=== PATIENT | female | born 1995 | race African-American/Black ===

== ENCOUNTER → 2020-05-28 13:42 | Outpatient (CLI) | payer BC, SELFPAY ==
--- NOTE | ~2020-05-28 | XR_ITS ---
EXAMINATION: XR hand RT 2V EXAM DATE: 05/28/2020 15:29 INDICATION: Multiple joint pain . TECHNIQUE: Frontal and lateral projections of the right hand. There is no prior study for compariso n. FINDINGS: The joint spaces are uniform. There are no acute right hand fractures or dislocations iden tified. There is no subcutaneous gas. The soft tissue is unremarkable. There are no radiopaque fo reign bodies. IMPRESSION: 1. Unremarkable XR hand RT 2V exam. Reviewed, dictated and finalized at location B. EMS MANAGEMENT CONSULTANT
--- NOTE | ~2020-05-28 | XR_ITS ---
EXAMINATION: XR ankle RT 2V EXAM DATE: 05/28/2020 15:29 INDICATION: Multiple joint pain . TECHNIQUE: Frontal and lateral projections of the right ankle. There is no prior study for comparis on. FINDINGS: There are no acute right ankle fractures or dislocations identified. There is no subcutane ous gas. The soft tissue is unremarkable. There are no radiopaque foreign bodies. IMPRESSION: 1. Unremarkable XR ankle RT 2V exam. Reviewed, dictated and finalized at location B. WILL AMBASSADOR
--- NOTE | ~2020-05-28 | XR_ITS ---
EXAMINATION: XR hand LT 2V EXAM DATE: 05/28/2020 15:29 INDICATION: Multiple joint pain. TECHNIQUE: Frontal and lateral projections of the left hand. Correlation is made to contralateral lawrence nd same date. FINDINGS: There are no acute left hand fractures or dislocations identified. There is no subcutaneou s gas. The soft tissue is unremarkable. There are no radiopaque foreign bodies. There are no bony erosions identified. Joint spaces are uniform. IMPRESSION: 1. Unremarkable XR hand LT 2V exam. Reviewed, dictated and finalized at location B. ULTANT
--- NOTE | ~2020-05-28 | XR_ITS ---
EXAMINATION: XR elbow LT 2V EXAM DATE: 05/28/2020 15:29 INDICATION: Multiple joint pain . TECHNIQUE: Frontal and lateral projections of the left wrist. There is no prior study for compariso n. FINDINGS: There are no acute left elbow fractures or dislocations identified. There is no subcutaneo us gas. The soft tissue is unremarkable. There are no radiopaque foreign bodies. IMPRESSION: 1. Unremarkable XR elbow LT 2V exam. Reviewed, dictated and finalized at location B. EHOUSE OPERATOR
--- NOTE | ~2020-05-28 | XR_ITS ---
EXAMINATION: XR shoulder RT min 2V EXAM DATE: 05/28/2020 15:29 INDICATION: Multiple joint pain . TECHNIQUE: Right shoulder frontal with internal rotation, frontal with external rotation, axillary p rojections. There is no prior study for comparison. FINDINGS: Unremarkable right glenohumeral and acromioclavicular joints. There are no acute fractures or dislocations identified. There is no subcutaneous gas. The soft tissue is unremarkable. There are no radiopaque foreign bodies. IMPRESSION: 1. Unremarkable XR shoulder RT min 2V exam. Reviewed, dictated and finalized at location B. ORT OPERATIONS OFFICER
--- NOTE | ~2020-05-28 | XR_ITS ---
EXAMINATION: XR ankle LT 2V EXAM DATE: 05/28/2020 15:29 INDICATION: Multiple joint pain . TECHNIQUE: Frontal and lateral projections of the left ankle. There is no prior study for compariso n. FINDINGS: There is an old avulsion injury of the medial malleolus. The ankle mortise appears intact. There are no acute left ankle fractures or dislocations identified. There is no subcutaneous gas. The soft tissue is unremarkable. There are no radiopaque foreign bodies. IMPRESSION: 1. XR ankle LT 2V exam without acute osseous findings. 2. Old medial malleolar avulsion injury. Reviewed, dictated and finalized at location B. ETING RESEARCHER
--- NOTE | ~2020-05-28 | XR_ITS ---
EXAMINATION: XR hip BI wo pelvis EXAM DATE: 05/28/2020 15:29 INDICATION: Multiple joint pain . TECHNIQUE: Each hip imaged independently (separate right and also left hip) 'frog leg' and frontal p rojections for interpretation. There is no prior study for comparison. FINDINGS: No radiographic evidence of hip avascular necrosis. Unremarkable hip joints. There are no a cute fractures or dislocations identified. There is no subcutaneous gas. The soft tissue is unremar kable. There are no radiopaque foreign bodies. IMPRESSION: 1. Unremarkable XR hip BI wo pelvis exam. Reviewed, dictated and finalized at location B. EE SHOP AIDE
--- NOTE | ~2020-05-28 | XR_ITS ---
EXAMINATION: XR elbow RT 2V EXAM DATE: 05/28/2020 15:29 INDICATION: Multiple joint pain. TECHNIQUE: Frontal and lateral projections of the right elbow. There is no prior study for comparis on. FINDINGS: There are no acute right elbow fractures or dislocations identified. There is no subcutane ous gas. The soft tissue is unremarkable. There are no radiopaque foreign bodies. IMPRESSION: 1. Unremarkable XR elbow RT 2V exam. Reviewed, dictated and finalized at location B. AULIC CHAIR ASSEMBLER
--- NOTE | ~2020-05-28 | XR_ITS ---
EXAMINATION: XR knee LT 2V EXAM DATE: 05/28/2020 15:29 INDICATION: Multiple joint pain . TECHNIQUE: Frontal and lateral projections of the left knee. There is no prior study for comparison . FINDINGS: There are no acute left knee fractures or dislocations identified. There is no subcutaneou s gas. The soft tissue is unremarkable. There are no radiopaque foreign bodies. IMPRESSION: 1. Unremarkable XR knee LT 2V exam. Reviewed, dictated and finalized at location B. OW MACHINE OPERATOR
--- NOTE | ~2020-05-28 | XR_ITS ---
EXAMINATION: XR foot LT 2V EXAM DATE: 05/28/2020 15:29 INDICATION: Multiple joint pain. TECHNIQUE: Frontal and lateral projections of the left foot. There is no prior study for comparison . FINDINGS: There is mild left hallux valgus. There are no bony erosions identified. No periosteal brian ction or band of sclerosis to suggest subacute stress fracture. There are no acute fractures or dislo cations identified. There is no subcutaneous gas. The soft tissue is unremarkable. There are no r adiopaque foreign bodies. IMPRESSION: Mild left hallux valgus. Reviewed, dictated and finalized at location B. ONATION TESTER IMPRESSION: Mild left hallux valgus.
--- NOTE | ~2020-05-28 | XR_ITS ---
EXAMINATION: XR knee RT 2V EXAM DATE: 05/28/2020 15:29 INDICATION: Multiple joint pain . TECHNIQUE: Frontal and lateral projections of the right knee. There is no prior study for compariso n. FINDINGS: There is minimal right medial tibiofemoral compartment primary osteoarthritis. No joint ef fusion. There are no acute fractures or dislocations identified. There is no subcutaneous gas. The soft tissue is unremarkable. There are no radiopaque foreign bodies. IMPRESSION: Minimal right knee osteoarthritis. Reviewed, dictated and finalized at location B. LE INSTALLER
--- NOTE | ~2020-05-28 | XR_ITS ---
EXAMINATION: XR shoulder LT min 2V EXAM DATE: 05/28/2020 15:29 INDICATION: Multiple joint pain . TECHNIQUE: Left shoulder frontal with internal rotation, frontal with external rotation, axillary pr ojections. There is no prior study for comparison. FINDINGS: Unremarkable left glenohumeral and acromioclavicular joints. There are no acute fractures or dislocations identified. There is no subcutaneous gas. The soft tissue is unremarkable. There are no radiopaque foreign bodies. IMPRESSION: 1. Unremarkable XR shoulder LT min 2V exam. Reviewed, dictated and finalized at location B. NG MAKER
--- NOTE | ~2020-05-28 | XR_ITS ---
EXAMINATION: XR wrist RT 2V EXAM DATE: 05/28/2020 15:29 INDICATION: Multiple joint pain . TECHNIQUE: Right wrist frontal and lateral projections obtained and reviewed. Correlation is made to contralateral wrist same date. FINDINGS: Right wrist scapholunate joint space is maintained. There are no acute fractures or disloca tions identified. There is no subcutaneous gas. The soft tissue is unremarkable. There are no rad iopaque foreign bodies. IMPRESSION: 1. Unremarkable XR wrist RT 2V exam. Reviewed, dictated and finalized at location B. N END MAN
--- NOTE | ~2020-05-28 | XR_ITS ---
EXAMINATION: XR foot RT 2V EXAM DATE: 05/28/2020 15:29 INDICATION: Multiple joint pain . TECHNIQUE: Frontal and lateral projections of the right foot. There is no prior study for compariso n. FINDINGS: There is mild right-sided hallux valgus. No periosteal reaction or band of sclerosis to akbar ggest subacute stress fracture. There are no bony erosions identified. There are no acute fractures o r dislocations identified. There is no subcutaneous gas. The soft tissue is unremarkable. There a re no radiopaque foreign bodies. IMPRESSION: Mild right hallux valgus. Reviewed, dictated and finalized at location B. DIRECTOR IMPRESSION: Mild right hallux valgus.
--- NOTE | ~2020-05-28 | XR_ITS ---
EXAMINATION: XR wrist LT 2V EXAM DATE: 05/28/2020 15:29 INDICATION: Multiple joint pain . TECHNIQUE: Frontal and lateral projections of the left wrist. There is no prior study for compariso n. FINDINGS: There are no acute left wrist fractures or dislocations identified. There is no subcutaneo us gas. The soft tissue is unremarkable. There are no radiopaque foreign bodies. Normal scapholun ate joint space. The joint spaces are uniform. IMPRESSION: 1. Unremarkable XR wrist LT 2V exam. Reviewed, dictated and finalized at location B. GER BUSINESS OPERATIONS
== END ==
PROVIDERS: Visit Provider Internal Medicine Rheumatology
DX: M25.59 Pain in other specified joint (principal); M17.12 Unilateral primary osteoarthritis, left knee; M20.12 Hallux valgus (acquired), left foot; M20.11 Hallux valgus (acquired), right foot
CPT/HCPCS: 73030; 73070; 73100; 73120; 73521; 73560; 73600; 73620

== ENCOUNTER 2020-08-01 13:43 | Outpatient (CLI) | payer BC, SELFPAY ==
--- NOTE | ~2020-08-01 | MR_ITS ---
EXAMINATION: MR lumbar spine wo con EXAM DATE: 08/01/2020 14:51 INDICATION: Low back pain. TECHNIQUE: Multi-sequential, multiplanar MR images of the lumbar spine were obtained without contrast . Sagittal T1, T2, T2 fat saturation images. Axial T2 weighted images. There is no prior study for comparison. FINDINGS: The vertebral bodies are aligned in the AP dimension. Vertebral body and disc heights are well-maintained. There are no suspicious marrow signal abnormalities. The conus medullaris terminates at the T12-L1 level and has normal signal intensity and morphology. Paraspinal soft tissue is unrem arkable. Level by level evaluation: T12-L1: Disc does not extend beyond the endplate margin. Facet arthropathy: Mild. Neural foraminal stenosis: No stenosis. Central canal stenosis: No stenosis. L1-L2: Disc does not extend beyond the endplate margin. Facet arthropathy: Mild. Neural foraminal stenosis: No stenosis. Central canal stenosis: No stenosis. L2-L3: Disc does not extend beyond the endplate margin. Facet arthropathy: Mild. Neural foraminal stenosis: No stenosis. Central canal stenosis: No stenosis. L3-L4: There is a mild diffuse disc bulge. Facet arthropathy: Mild to moderate. Neural foraminal stenosis: No stenosis. Central canal stenosis: No stenosis. L4-L5: There is a mild diffuse disc bulge. Facet arthropathy: Mild to moderate. Neural foraminal stenosis: Minimal bilateral. Central canal stenosis: No stenosis. L5-S1: There is a minimal diffuse disc bulge. Facet arthropathy: Mild to moderate. Neural foraminal stenosis: No stenosis. Central canal stenosis: No stenosis. IMPRESSION: Mild to moderate lower lumbar facet arthropathy. Otherwise mild lumbar spondylosis. Reviewed, dictated and finalized at location A. IMPRESSION: Mild to moderate lower lumbar facet arthropathy. Otherwise mild lum bar spondylosis.
--- NOTE | ~2020-08-01 | MR_ITS ---
EXAMINATION: MR cervical spine wo con EXAM DATE: 08/01/2020 14:51 INDICATION: Neck pain. Symptoms for years. TECHNIQUE: Multi-sequential, multiplanar MR images of the cervical spine were obtained without contra st. Axial T2, axial T2 MERGE sequence. Sagittal T1, T2, T2 fat saturation images also obtained. Th ere is no prior study for comparison. FINDINGS: There is mild to moderate reversal of the normal cervical lordosis which may be positional or spasm. The vertebral bodies are aligned in the AP dimension. Maintained There are no suspicious marrow signal abnormalities. Paraspinal soft tissue is unremarkabl e. The spinal cord signal intensity and intrinsic morphology is normal. Cervicomedullary junction is normal in appearance. Level by level evaluation: C2-C3: Disc does not extend beyond the endplate margin. Uncovertebral joint arthropathy: None. Facet joint arthropathy: Mild to moderate right. Neural foraminal stenosis: No stenosis. Central canal stenosis: No stenosis. C3-C4: Disc does not extend beyond the endplate margin. Uncovertebral joint arthropathy: Mild bilateral. Facet joint arthropathy: Mild bilateral. Neural foraminal stenosis: Mild bilateral. Central canal stenosis: No stenosis. C4-C5: Disc does not extend beyond the endplate margin. Uncovertebral joint arthropathy: Mild bilateral. Facet joint arthropathy: Mild bilateral. Neural foraminal stenosis: No stenosis. Central canal stenosis: No stenosis. C5-C6: Disc does not extend beyond the endplate margin. Uncovertebral joint arthropathy: Minimal bilateral. Facet joint arthropathy: None. Neural foraminal stenosis: No stenosis. Central canal stenosis: No stenosis. C6-C7: Disc does not extend beyond the endplate margin. Uncovertebral joint arthropathy: Minimal left. Facet joint arthropathy: None. Neural foraminal stenosis: No stenosis. Central canal stenosis: No stenosis. C7-T1: Disc does not extend beyond the endplate margin. Uncovertebral joint arthropathy: None. Facet joint arthropathy: Mild right. Neural foraminal stenosis: No stenosis. Central canal stenosis: No stenosis. IMPRESSION: 1. Mild to moderate reversal normal cervical lordosis. 2. Mild cervical arthropathy. Reviewed, dictated and finalized at location A.
== END 2020-08-01 13:44 ==
PROVIDERS: Visit Provider Internal Medicine Rheumatology
DX: M54.2 Cervicalgia (principal); M54.5 Low back pain; M47.816 Spondylosis without myelopathy or radiculopathy, lumbar region; M53.82 Other specified dorsopathies, cervical region
CPT/HCPCS: 72141; 72148

== ENCOUNTER 2020-08-30 13:38 | Outpatient (CLI) | payer BC, SELFPAY ==
--- NOTE | ~2020-08-30 | US_ITS ---
EXAMINATION: US venous doppler [facility] EXAM DATE: 08/30/2020 14:29 INDICATION: Left leg pain. TECHNIQUE: Multiple grayscale, color flow and Doppler images of the left lower extremity deep venous system were obtained and reviewed. There is no prior study for comparison. FINDINGS: The left common femoral, femoral and profunda veins demonstrate normal color flow, respirat ory variation, augmentation and compressibility. Compressibility, color flow confirmed within the le ft popliteal, posterior tibial, peroneal, and greater saphenous veins. IMPRESSION: 1. No left lower extremity deep venous thrombosis. Reviewed, dictated and finalized at location B.
== END 2020-08-30 13:39 | disposition home or self-care (01) ==
PROVIDERS: PCP Registered Nurse; Visit Provider Registered Nurse
DX: M79.605 Pain in left leg (principal); M79.89 Other specified soft tissue disorders
CPT/HCPCS: 93971